=== PATIENT | female | born 1990 | race American Indian/Alaskan Native ===

== ENCOUNTER 2018-03-07 11:36 | Emergency (ER) | payer SELFPAY ==
[2018-03-07 12:20] VITALS: BP 150/109
== END 2018-03-07 13:00 | disposition left against medical advice (07) ==
LOC: ED 11:36
DX: R51 Headache (principal); Z53.21 Procedure and treatment not carried out due to patient leaving prior to being seen by health care provider

== ENCOUNTER 2019-04-29 09:32 | Outpatient (CLI) | payer OTHER ==
[2019-04-29 10:37] LABS: Hematocrit 37.7 % (30.3-42.9); Hemoglobin 13.2 gm/dl (10.1-14.3); Mean Corpuscular HGB Conc 35 % (30-34); Mean Corpuscular Volume 78 fl (79-97); Platelet Count 437 K/mm3 (140-440); Red Blood Count 4.84 M/mm3 (3.65-5.03); Red Cell Distribution Width 15.4 % (13.2-15.2)
[2019-04-29 10:57] LABS: Alanine Aminotransferase 14 units/L (7-56); Albumin 3.7 g/dL (3.9-5); BUN/Creatinine Ratio 10; Blood Urea Nitrogen 8 mg/dL (7-17); Calcium 9.1 mg/dL (8.4-10.2); Chol/HDL Ratio 4.17 %; HDL Cholesterol 41 mg/dL (40-59); Hemolysis Index 0; LDL Cholesterol,Direct 122 mg/dL (50-130)
[2019-05-02 13:04] LABS: Vitamin D, 25-OH, D2 <4 ng/mL
== END 2019-04-29 09:33 | disposition home or self-care (01) ==
LOC: LAB 09:32
PROVIDERS: ATTEND Internal Medicine
DX: Z13.1 Encounter for screening for diabetes mellitus (principal); Z13.220 Encounter for screening for lipoid disorders; I10 Essential (primary) hypertension
CPT/HCPCS: 36415; 80053; 80061; 82306; 82607; 83036; 84443; 85027

== ENCOUNTER 2021-02-22 19:51 | Emergency (ER) | payer SELFPAY ==
[2021-02-22 20:07] VITALS: BP 177/107
--- NOTE | 2021-02-22 20:12 | Event Note ---
ED Screening Note Date of service: 02/22/21 Time: 20:11 ED Screening Note: Patient complains of throat pain x2 days Patient having difficulty with speech, however hot potato voice is noted Uvula is deviated on exam This initial assessment/diagnostic orders/clinical plan/treatment(s) is/are sub ject to change based on patients health status, clinical progression and re- assessment by fellow clinical providers in the ED. Further treatment and workup at subsequent clinical providers discretion. Patient/guardian urged not to elope from the ED as their condition may be serious if not clinically assessed and managed. Initial orders include: ACC for evaluation
[2021-02-22] MEDS ORDERED: dexAMETHasone 20 MG/5 ML VIAL IV ONE (20:25)
[2021-02-22] MEDS ORDERED: diphenhydrAMINE 50 MG/ML VIAL IV ONE (20:25)
[2021-02-22] MEDS ORDERED: FAMOTIDINE 20 MG/2 ML INJ IV ONE (20:25)
--- NOTE | 2021-02-22 21:01 | Emergency Department Report ---
ED General Adult HPI - General Chief complaint: Sore Throat Stated complaint: THROAT PAIN/UNABLE TO SWALLOW Time Seen by Provider: 02/22/21 20:04 Source: patient Mode of arrival: Ambulatory Limitations: No Limitations - History of Present Illness Initial comments: Patient is a 31-year-old -[place] female with a history of hypertension and morbid obesity who presents to the ED with acute onset persistent dysphagia and severe sore throat and throat tightness for the last 24 hours after eating at a restaurant over 24 hours ago. Patient states that initially the symptoms were mild but in the last 12 hours the throat tightness and swelling got worse such that she is unable to speak audibly because of hoarseness and that swallowing food makes the pain get worse. Patient states that the only medication she occasionally takes is her blood pressure medication which is hydrochlorothiazide. Patient states that she has not taken any medication prior to arrival in the ED. Patient however denies swollen lips, swollen tongue, swelling eyes, nasal and sinus congestion, cough, shortness of breath, wheezing, nausea and vomiting, diarrhea, abdominal pain, itching or diffuse body rashes, fever and chills. MD Complaint: Sore throat, dysphagia; suspected allergic reaction -: Sudden, hour(s) (24) Location: mouth Radiation: non-radiation Severity scale (0 -10): 7 Quality: aching, sharp, other (Throat tightness) Consistency: constant Improves with: none Worsens with: eating, other (Speech) Associated Symptoms: denies other symptoms. denies: confusion, chest pain, cough, diaphoresis, fever/chills, headaches, loss of appetite, malaise, nausea/vomiting, rash, seizure, shortness of breath, syncope, weakness, other Treatments Prior to Arrival: none - Related Data Previous Rx's Medication Instructions Recorded Last Taken Type Acetaminophen [Tylenol] 325 mg PO TID #30 capsule 10/06/18 Unknown Rx Mag Hydrox/Aluminum Hyd/Simeth 15 ml PO TID #1 bottle 10/06/18 Unknown Rx [Maalox Advanced Suspension] Ondansetron (Nf) [Zofran TAB] 8 mg PO Q8HR PRN #20 tablet 10/06/18 Unknown Rx Azithromycin [Zithromax Z-REZA] 250 mg PO DAILY #6 tablet 02/22/21 Unknown Rx Famotidine [Pepcid] 20 mg PO Q12H #30 tablet 02/22/21 Unknown Rx Lidocaine Viscous 2% 10 ml PO Q4H PRN #120 ml 02/22/21 Unknown Rx Prednisone [predniSONE 10 mg 10 mg PO .TAPER #21 tab.ds.pk 02/22/21 Unknown Rx (6-Day Pack, 21 Tabs)] diphenhydrAMINE [Benadryl CAP] 50 mg PO Q8HR PRN #30 capsule 02/22/21 Unknown Rx Allergies Allergy/AdvReac Type Severity Reaction Status Date / Time No Known Allergies Allergy Verified 04/08/19 11:07 ED Review of Systems ROS: Stated complaint: THROAT PAIN/UNABLE TO SWALLOW Other details as noted in HPI Constitutional: denies: chills, fever Eyes: denies: eye pain, eye discharge, vision change ENT: throat pain, other (Throat tightness). denies: ear pain Respiratory: denies: cough, orthopnea, shortness of breath, SOB with exertion, SOB at rest, wheezing Cardiovascular: denies: chest pain, palpitations Endocrine: no symptoms reported. denies: excessive sweating, flushing, intolerance to cold Gastrointestinal: denies: abdominal pain, nausea, vomiting, diarrhea Genitourinary: denies: urgency, dysuria, discharge Musculoskeletal: denies: back pain, joint swelling, arthralgia Skin: denies: rash, lesions Neurological: denies: headache, weakness, paresthesias Psychiatric: denies: anxiety, depression Hematological/Lymphatic: denies: easy bleeding, easy bruising ED Past Medical Hx - Past Medical History Hx Hypertension: Yes - Surgical History Additional Surgical History: LEEP, colonoscopy - Social History Smoking Status: Unknown if ever smoked - Medications Home Medications: Home Medications Medication Instructions Recorded Confirmed Last Taken Type Acetaminophen [Tylenol] 325 mg PO TID #30 capsule 10/06/18 Unknown Rx Mag Hydrox/Aluminum Hyd/Simeth 15 ml PO TID #1 bottle 10/06/18 Unknown Rx [Maalox Advanced Suspension] Ondansetron (Nf) [Zofran TAB] 8 mg PO Q8HR PRN #20 tablet 10/06/18 Unknown Rx Azithromycin [Zithromax Z-REZA] 250 mg PO DAILY #6 tablet 02/22/21 Unknown Rx Famotidine [Pepcid] 20 mg PO Q12H #30 tablet 02/22/21 Unknown Rx Lidocaine Viscous 2% 10 ml PO Q4H PRN #120 ml 02/22/21 Unknown Rx Prednisone [predniSONE 10 mg 10 mg PO .TAPER #21 tab.ds.pk 02/22/21 Unknown Rx (6-Day Pack, 21 Tabs)] diphenhydrAMINE [Benadryl CAP] 50 mg PO Q8HR PRN #30 capsule 02/22/21 Unknown Rx ED Physical Exam - General Limitations: No Limitations General appearance: alert, in no apparent distress - Head Head exam: Present: atraumatic, normocephalic, normal inspection - Eye Eye exam: Present: normal appearance, PERRL, EOMI Pupils: Present: normal accommodation - ENT ENT exam: Present: mucous membranes moist, TM's normal bilaterally, normal external ear exam, other (Midline swollen uvula; mild oropharyngeal erythema) - Neck Neck exam: Present: normal inspection - Respiratory Respiratory exam: Present: normal lung sounds bilaterally. Absent: respiratory distress, wheezes, rales, rhonchi, chest wall tenderness, decreased breath sounds, prolonged expiratory - Cardiovascular Cardiovascular Exam: Present: regular rate, normal rhythm, normal heart sounds. Absent: systolic murmur, diastolic murmur, rubs, gallop - GI/Abdominal GI/Abdominal exam: Present: soft, normal bowel sounds. Absent: tenderness, guarding, rebound, hyperactive bowel sounds, organomegaly - Extremities Exam Extremities exam: Present: normal inspection, full ROM, normal capillary refill - Back Exam Back exam: Present: normal inspection, full ROM. Absent: tenderness, CVA tenderness (R), CVA tenderness (L), muscle spasm, paraspinal tenderness, vertebral tenderness - Neurological Exam Neurological exam: Present: alert, oriented X3, CN II-XII intact, normal gait, reflexes normal - Psychiatric Psychiatric exam: Present: normal affect, normal mood - Skin Skin exam: Present: warm, dry, intact, normal color. Absent: rash ED Course Vital Signs 02/22/21 20:06 Temperature 98.4 F Pulse Rate 96 H Respiratory 18 Rate Blood Pressure 177/107 O2 Sat by Pulse 99 Oximetry ED Medical Decision Making - Medical Decision Making This is a 31-year-old -[place] female with a history of hypertension and morbid obesity who presents to the ED with acute onset persistent dysphagia and severe sore throat and throat tightness for the last 24 hours after eating at a restaurant over 24 hours ago. Patient states that initially the symptoms were mild but in the last 12 hours the throat tightness and swelling got worse such that she is unable to speak audibly because of hoarseness and that swallowing food makes the pain get worse. Patient states that the only medication she occasionally takes is her blood pressure medication which is hydrochlorothiazide. Patient states that she has not taken any medication prior to arrival in the ED. In the ED, patient is alert and oriented x3 and is not in any distress. Patient was treated in the ED for suspected acute allergic reaction based on the physical exam findings of swollen midline uvula, the patient's hoarseness on physical exam. Based on the history and physical exam findings, patient symptoms are likely due to acute allergic reaction although acute infectious pharyngitis cannot be ruled out. On reevaluation, patient felt better, patient was able to swallow fluids and solid medications with no difficulty. The swelling on the uvula has significantly improved improved and is now mild. Patient's oxygen saturation in room air is 99%. Patient was therefore discharged home on medications and advised to follow-up with her primary care physician in 3 to 5 days for reevaluation. Patient was advised to return to the ED immediately if symptoms get worse. - Differential Diagnosis Allergic reaction; viral pharyngitis; strep pharyngitis; laryngitis Critical care attestation.: If time is entered above; I have spent that time in minutes in the direct care of this critically ill patient, excluding procedure time. ED Disposition Clinical Impression: Uvular swelling Acute allergic reaction Qualifiers: Encounter type: initial encounter Qualified Code(s): T78.40XA - Allergy, unspecified, initial encounter Acute pharyngitis Qualifiers: Pharyngitis/tonsillitis etiology: unspecified etiology Qualified Code(s): J02.9 - Acute pharyngitis, unspecified Disposition: DC-01 TO HOME OR SELFCARE Is pt being admited?: No Does the pt Need Aspirin: No Condition: Stable Instructions: Allergies, Adult, [id number], Pharyngitis, [id number], Sore Throat, [id number] Additional Instructions: Take medication with food, drink plenty of fluids and follow-up with your primary care physician in 3 to 5 days for reevaluation. Return to the ED immediately if symptoms get worse. Prescriptions: diphenhydrAMINE [Benadryl CAP] 50 mg PO Q8HR PRN #30 capsule PRN Reason: Allergic Reaction Lidocaine Viscous 2% 10 ml PO Q4H PRN #120 ml PRN Reason: Sore Throat Famotidine [Pepcid] 20 mg PO Q12H #30 tablet Prednisone [predniSONE 10 mg (6-Day Pack, 21 Tabs)] 10 mg PO .TAPER #21 tab.ds.pk Azithromycin [Zithromax Z-REZA] 250 mg PO DAILY #6 tablet Referrals: [facility] [Provider Group] - 3-5 Days Forms: Work/School Release Form(ED) Time of Disposition: 23:20 Print Language: AMHARIC
== END 2021-02-22 23:00 | disposition home or self-care (01) ==
LOC: ED 19:51
DX: J02.9 Acute pharyngitis, unspecified (principal); K13.79 Other lesions of oral mucosa; T78.40XA Allergy, unspecified, initial encounter; I10 Essential (primary) hypertension; Z79.899 Other long term (current) drug therapy; Z98.890 Other specified postprocedural states; X58.XXXA Exposure to other specified factors, initial encounter
CPT/HCPCS: 96374; 96375; 99282; J1100; J1200

== ENCOUNTER 2021-05-28 23:55 | Emergency (ER) | payer SELFPAY ==
[2021-05-29 00:41] VITALS: BP 150/97
[2021-05-29] MEDS ORDERED: diphenhydrAMINE 50 MG/ML VIAL IV ONE ×2 (01:30→04:30)
[2021-05-29] MEDS ORDERED: FAMOTIDINE 20 MG/2 ML INJ IV ONE ×2 (01:30→04:30)
[2021-05-29] MEDS ORDERED: dexAMETHasone 20 MG/5 ML VIAL IV ONE ×2 (01:30→04:30)
--- NOTE | 2021-05-29 03:43 | Emergency Department Report ---
ED Allergic Reaction HPI - General Chief complaint: Sore Throat Stated complaint: THROAT PAIN/UNABLE TO SWALLOW/DEMARIO Source: patient Mode of arrival: Ambulatory Limitations: No Limitations - History of Present Illness Initial Comments: Patient is a 31-year-old -[place] female with a history of morbid obesity and hypertension who presents to the ED with complaint of acute onset persistent sore throat, bilateral ear pain, dysphagia and dysphonia for the last 2 days, worse in the last 6 hours. Patient states that she feels as if she is unable to swallow anything because of swollen uvula. Patient states that the last food she ate was from a restaurant 2 days ago before the onset of the symptoms. Patient however denies fever, chills, cough, wheezing, chest pain, sh ortness of breath, dizziness, syncope, swollen lips or tongue, swollen face, nausea and vomiting or diarrhea and abdominal pain, nasal and sinus congestion MD Complaint: allergic reaction, other (Swollen uvula) -: Sudden, days(s) (2) Exposure: food Symptoms: hoarseness, other (sore throat; dysphagia; dysphonia) Severity: moderate Treatment Prior to Arrival: none Previous Allergy History: none - Related Data Previous Rx's Medication Instructions Recorded Last Taken Type Acetaminophen [Tylenol] 325 mg PO TID #30 capsule 10/06/18 Unknown Rx Mag Hydrox/Aluminum Hyd/Simeth 15 ml PO TID #1 bottle 10/06/18 Unknown Rx [Maalox Advanced Suspension] Ondansetron (Nf) [Zofran TAB] 8 mg PO Q8HR PRN #20 tablet 10/06/18 Unknown Rx Azithromycin [Zithromax Z-REZA] 250 mg PO DAILY #6 tablet 02/22/21 Unknown Rx Famotidine [Pepcid] 20 mg PO Q12H #30 tablet 02/22/21 Unknown Rx Lidocaine Viscous 2% 10 ml PO Q4H PRN #120 ml 02/22/21 Unknown Rx Prednisone [predniSONE 10 mg 10 mg PO .TAPER #21 tab.ds.pk 02/22/21 Unknown Rx (6-Day Pack, 21 Tabs)] diphenhydrAMINE [Benadryl CAP] 50 mg PO Q8HR PRN #30 capsule 02/22/21 Unknown Rx Azithromycin [Zithromax Z-REZA] 250 mg PO DAILY #6 tablet 05/29/21 Unknown Rx Famotidine [Pepcid] 20 mg PO BID #40 tablet 05/29/21 Unknown Rx diphenhydrAMINE [Benadryl CAP] 50 mg PO Q8HR PRN #30 capsule 05/29/21 Unknown Rx predniSONE [Deltasone] 60 mg PO QDAY #15 tab 05/29/21 Unknown Rx Allergies Allergy/AdvReac Type Severity Reaction Status Date / Time No Known Allergies Allergy Verified 04/08/19 11:07 ED Review of Systems ROS: Stated complaint: THROAT PAIN/UNABLE TO SWALLOW/DEMARIO Other details as noted in HPI Constitutional: denies: chills, fever Eyes: denies: eye pain, eye discharge, vision change ENT: ear pain (bilateral ear pain), throat pain, other (swollen uvula) Respiratory: denies: cough, shortness of breath, wheezing Cardiovascular: denies: chest pain, palpitations Endocrine: no symptoms reported Gastrointestinal: denies: abdominal pain, nausea, vomiting, diarrhea, hematochezia Genitourinary: denies: urgency, dysuria, discharge Musculoskeletal: denies: back pain, joint swelling, arthralgia Skin: denies: rash, lesions Neurological: denies: headache, weakness, paresthesias Psychiatric: denies: anxiety, depression Hematological/Lymphatic: denies: easy bleeding, easy bruising ED Past Medical Hx - Past Medical History Previous Medical History?: Yes Hx Hypertension: Yes - Surgical History Past Surgical History?: No Additional Surgical History: LEEP, colonoscopy - Social History Smoking Status: Unknown if ever smoked - Medications Home Medications: Home Medications Medication Instructions Recorded Confirmed Last Taken Type Acetaminophen [Tylenol] 325 mg PO TID #30 capsule 10/06/18 Unknown Rx Mag Hydrox/Aluminum Hyd/Simeth 15 ml PO TID #1 bottle 10/06/18 Unknown Rx [Maalox Advanced Suspension] Ondansetron (Nf) [Zofran TAB] 8 mg PO Q8HR PRN #20 tablet 10/06/18 Unknown Rx Azithromycin [Zithromax Z-REZA] 250 mg PO DAILY #6 tablet 02/22/21 Unknown Rx Famotidine [Pepcid] 20 mg PO Q12H #30 tablet 02/22/21 Unknown Rx Lidocaine Viscous 2% 10 ml PO Q4H PRN #120 ml 02/22/21 Unknown Rx Prednisone [predniSONE 10 mg 10 mg PO .TAPER #21 tab.ds.pk 02/22/21 Unknown Rx (6-Day Pack, 21 Tabs)] diphenhydrAMINE [Benadryl CAP] 50 mg PO Q8HR PRN #30 capsule 02/22/21 Unknown Rx Azithromycin [Zithromax Z-REZA] 250 mg PO DAILY #6 tablet 05/29/21 Unknown Rx Famotidine [Pepcid] 20 mg PO BID #40 tablet 05/29/21 Unknown Rx diphenhydrAMINE [Benadryl CAP] 50 mg PO Q8HR PRN #30 capsule 05/29/21 Unknown Rx predniSONE [Deltasone] 60 mg PO QDAY #15 tab 05/29/21 Unknown Rx ED Physical Exam - General Limitations: No Limitations General appearance: alert, in no apparent distress - Head Head exam: Present: atraumatic, normocephalic, normal inspection - Eye Eye exam: Present: normal appearance, PERRL, EOMI Pupils: Present: normal accommodation - ENT ENT exam: Present: mucous membranes moist, TM's normal bilaterally, normal external ear exam, other (Mildly swollen uvula; mild erythematous oropharynx and airway patent) - Neck Neck exam: Present: normal inspection, full ROM - Respiratory Respiratory exam: Present: normal lung sounds bilaterally. Absent: respiratory distress, wheezes, rales, rhonchi, chest wall tenderness, accessory muscle use, decreased breath sounds, prolonged expiratory - Cardiovascular Cardiovascular Exam: Present: regular rate, normal rhythm, normal heart sounds. Absent: systolic murmur, diastolic murmur, rubs, gallop - GI/Abdominal GI/Abdominal exam: Present: soft, normal bowel sounds. Absent: tenderness, guarding, rebound, hyperactive bowel sounds, hypoactive bowel sounds, organomegaly - Extremities Exam Extremities exam: Present: normal inspection, full ROM, normal capillary refill - Back Exam Back exam: Present: normal inspection, full ROM. Absent: tenderness, CVA tenderness (R), CVA tenderness (L), muscle spasm, paraspinal tenderness, vertebral tenderness - Neurological Exam Neurological exam: Present: alert, oriented X3, CN II-XII intact, normal gait, reflexes normal - Psychiatric Psychiatric exam: Present: normal affect, normal mood, anxious - Skin Skin exam: Present: warm, dry, intact, normal color. Absent: rash ED Course Vital Signs 05/29/21 00:41 Temperature 99.2 F Pulse Rate 92 H Respiratory 20 Rate Blood Pressure 150/97 [Right] O2 Sat by Pulse 99 Oximetry ED Medical Decision Making - Medical Decision Making This is a 31-year-old -[place] female with a history of morbid obesity and hypertension who presents to the ED with complaint of acute onset persistent sore throat, bilateral ear pain, dysphagia and dysphonia for the last 2 days, worse in the last 6 hours. Patient states that she feels as if she is unable to swallow anything because of swollen uvula. Patient states that the last food she ate was from a restaurant 2 days ago before the onset of the symptoms. In the ED, patient is alert and oriented x3 and is not in any distress. Patient was treated in the ED for suspected acute allergic reaction causing the uvula swelling. Patient is hemodynamically stable. Patient also received Pepcid, Benadryl and Decadron in the ED and was observed in the ED for 3 hours. On reevaluation, patient felt better, patient is hemodynamically stable and the uvula swelling is significantly improved. Patient was discharged home on medications and advised to follow-up with her primary care physician in 2 to 3 days for reevaluation return to the ED immediately if symptoms get worse. - Differential Diagnosis Pharyngitis; allergic reaction; uvula swelling; URI Critical care attestation.: If time is entered above; I have spent that time in minutes in the direct care of this critically ill patient, excluding procedure time. ED Disposition Clinical Impression: Swollen uvula Acute allergic reaction Qualifiers: Encounter type: initial encounter Qualified Code(s): T78.40XA - Allergy, unspecified, initial encounter Acute pharyngitis, unspecified Qualifiers: Pharyngitis/tonsillitis etiology: unspecified etiology Qualified Code(s): J02.9 - Acute pharyngitis, unspecified Disposition: DC-01 TO HOME OR SELFCARE Is pt being admited?: No Does the pt Need Aspirin: No Condition: Stable Instructions: Allergies, Adult, [id number], Pharyngitis, [id number] Additional Instructions: Take medication with food, drink plenty of fluids and follow-up with your primary care physician in 3 to 5 days for reevaluation. Return to the ED immediately if symptoms get worse. Prescriptions: diphenhydrAMINE [Benadryl CAP] 50 mg PO Q8HR PRN #30 capsule PRN Reason: Itching and swelling predniSONE [Deltasone] 60 mg PO QDAY #15 tab Famotidine [Pepcid] 20 mg PO BID #40 tablet Azithromycin [Zithromax Z-REZA] 250 mg PO DAILY #6 tablet Referrals: [facility] [Provider Group] - 3-5 Days Forms: Work/School Release Form(ED) Time of Disposition: 03:44 Print Language: SYRIAC
== END 2021-05-29 06:19 | disposition home or self-care (01) ==
LOC: ED 23:55
DX: T78.40XA Allergy, unspecified, initial encounter (principal); K13.79 Other lesions of oral mucosa; J02.9 Acute pharyngitis, unspecified; H92.03 Otalgia, bilateral; I10 Essential (primary) hypertension; Z98.890 Other specified postprocedural states; Z79.899 Other long term (current) drug therapy; X58.XXXA Exposure to other specified factors, initial encounter
CPT/HCPCS: 96374; 96375; 99282; J1100; J1200

== ENCOUNTER 2021-10-07 12:08 | Emergency (ER) | payer SELFPAY ==
[2021-10-07 12:28] VITALS: BP 151/93
--- NOTE | 2021-10-07 12:50 | Emergency Department Report ---
ED General Adult HPI - General Chief complaint: Sore Throat Stated complaint: THROAT CLOSING CAN'T SWOLLOW Time Seen by Provider: 10/07/21 12:40 Source: patient Mode of arrival: Ambulatory Limitations: No Limitations - History of Present Illness Initial comments: Patient is a 31-year-old female presents emergency room with complaints of feeling like her throat is swollen that began early this morning. She states that she took some Pepcid and Benadryl and her symptoms improved and she was able to tolerate p.o. intake. She is able to tolerate her secretions. Patient states that she has a history of acid reflux and reports that she was previously given Botox injections due to esophageal stricture. She denies any vomiting or regurgitation. She was referred to GI but never followed up. Past medical history of hypertension. No allergies to medications. - Related Data Previous Rx's Medication Instructions Recorded Last Taken Type Acetaminophen [Tylenol] 325 mg PO TID #30 capsule 10/06/18 Unknown Rx Ondansetron (Nf) [Zofran TAB] 8 mg PO Q8HR PRN #20 tablet 10/06/18 Unknown Rx Azithromycin [Zithromax Z-REZA] 250 mg PO DAILY #6 tablet 02/22/21 Unknown Rx Famotidine [Pepcid] 20 mg PO Q12H #30 tablet 02/22/21 Unknown Rx Prednisone [predniSONE 10 mg 10 mg PO .TAPER #21 tab.ds.pk 02/22/21 Unknown Rx (6-Day Pack, 21 Tabs)] diphenhydrAMINE [Benadryl CAP] 50 mg PO Q8HR PRN #30 capsule 02/22/21 Unknown Rx Azithromycin [Zithromax Z-REZA] 250 mg PO DAILY #6 tablet 05/29/21 Unknown Rx diphenhydrAMINE [Benadryl CAP] 50 mg PO Q8HR PRN #30 capsule 05/29/21 Unknown Rx predniSONE [Deltasone] 60 mg PO QDAY #15 tab 05/29/21 Unknown Rx Famotidine [Pepcid] 20 mg PO BID #40 tablet 10/07/21 Unknown Rx Lidocaine Viscous 2% 10 ml PO Q4H PRN #120 ml 10/07/21 Unknown Rx Mag Hydrox/Aluminum Hyd/Simeth 15 ml PO TID #1 bottle 10/07/21 Unknown Rx [Maalox Advanced Suspension] Allergies Allergy/AdvReac Type Severity Reaction Status Date / Time No Known Allergies Allergy Verified 04/08/19 11:07 ED Review of Systems ROS: Stated complaint: THROAT CLOSING CAN'T SWOLLOW Other details as noted in HPI Comment: All other systems reviewed and negative ED Past Medical Hx - Past Medical History Previous Medical History?: Yes Hx Hypertension: Yes - Surgical History Past Surgical History?: Yes Additional Surgical History: LEEP, colonoscopy - Social History Smoking Status: Unknown if ever smoked - Medications Home Medications: Home Medications Medication Instructions Recorded Confirmed Last Taken Type Acetaminophen [Tylenol] 325 mg PO TID #30 capsule 10/06/18 Unknown Rx Ondansetron (Nf) [Zofran TAB] 8 mg PO Q8HR PRN #20 tablet 10/06/18 Unknown Rx Azithromycin [Zithromax Z-REZA] 250 mg PO DAILY #6 tablet 02/22/21 Unknown Rx Famotidine [Pepcid] 20 mg PO Q12H #30 tablet 02/22/21 Unknown Rx Prednisone [predniSONE 10 mg 10 mg PO .TAPER #21 tab.ds.pk 02/22/21 Unknown Rx (6-Day Pack, 21 Tabs)] diphenhydrAMINE [Benadryl CAP] 50 mg PO Q8HR PRN #30 capsule 02/22/21 Unknown Rx Azithromycin [Zithromax Z-REZA] 250 mg PO DAILY #6 tablet 05/29/21 Unknown Rx diphenhydrAMINE [Benadryl CAP] 50 mg PO Q8HR PRN #30 capsule 05/29/21 Unknown Rx predniSONE [Deltasone] 60 mg PO QDAY #15 tab 05/29/21 Unknown Rx Famotidine [Pepcid] 20 mg PO BID #40 tablet 10/07/21 Unknown Rx Lidocaine Viscous 2% 10 ml PO Q4H PRN #120 ml 10/07/21 Unknown Rx Mag Hydrox/Aluminum Hyd/Simeth 15 ml PO TID #1 bottle 10/07/21 Unknown Rx [Maalox Advanced Suspension] ED Physical Exam - General Limitations: No Limitations General appearance: alert, in no apparent distress - Head Head exam: Present: atraumatic, normocephalic - Eye Eye exam: Present: normal appearance - ENT ENT exam: Present: normal orophraynx, mucous membranes moist, other (no tonsillar hypertrophy or exudates, uvula is midline, no uvular edema or deviation, no trismus, no muffled voice, airway is intact) - Respiratory Respiratory exam: Present: normal lung sounds bilaterally. Absent: respiratory distress, wheezes, rales, rhonchi, stridor, chest wall tenderness, accessory muscle use, decreased breath sounds, prolonged expiratory - Neurological Exam Neurological exam: Present: alert, oriented X3 - Psychiatric Psychiatric exam: Present: normal affect, normal mood - Skin Skin exam: Present: warm, dry, intact ED Course Vital Signs 10/07/21 12:23 Temperature 98.4 F Pulse Rate 75 Respiratory 18 Rate Blood Pressure 151/93 O2 Sat by Pulse 100 Oximetry ED Medical Decision Making - Medical Decision Making Patient is a 31-year-old female presents emergency room with complaints of feeling like her throat is swollen that began early this morning. She states that she took some Pepcid and Benadryl and her symptoms improved and she was able to tolerate p.o. intake. She is able to tolerate her secretions. Patient states that she has a history of acid reflux and reports that she was previously given Botox injections due to esophageal stricture. She denies any vomiting or regurgitation. She was referred to GI but never followed up. Past medical hist ory of hypertension. No allergies to medications. Vitals are stable. Normal oropharynx, airway is intact, no signs of angioedema or anaphylaxis, no signs of allergic reaction. Symptoms likely could be related to GERD vs partial esophageal stricture. It appears patient has had this issue in the past but states that she never followed up with GI. Patient will be given prescription for medications. She is able to tolerate p.o. intake. She is not having any regurgitation. Advised patient Please take medication as prescribed. Follow-up with a GI doctor. Return to emergency room for any new or worsening symptoms. Critical care attestation.: If time is entered above; I have spent that time in minutes in the direct care of this critically ill patient, excluding procedure time. ED Disposition Clinical Impression: Throat discomfort Disposition: 01 HOME / SELF CARE / HOMELESS Is pt being admited?: No Does the pt Need Aspirin: No Condition: Stable Instructions: Gastroesophageal Reflux Disease, Adult, [id number] Additional Instructions: Please take medication as prescribed. Follow-up with a GI doctor. Return to emergency room for any new or worsening symptoms. Prescriptions: Lidocaine Viscous 2% 10 ml PO Q4H PRN #120 ml PRN Reason: Sore Throat Mag Hydrox/Aluminum Hyd/Simeth [Maalox Advanced Suspension] 15 ml PO TID #1 bottle Famotidine [Pepcid] 20 mg PO BID #40 tablet Referrals: [facility] [Provider Group] - 2-3 Days Time of Disposition: 12:49 Print Language: BELARUSIAN
== END 2021-10-07 13:49 | disposition home or self-care (01) ==
LOC: ED 12:08
DX: R07.0 Pain in throat (principal); I10 Essential (primary) hypertension; Z98.890 Other specified postprocedural states; Z79.899 Other long term (current) drug therapy
CPT/HCPCS: 99281